=== PATIENT | female | born 1955 ===

== ENCOUNTER → 2018-05-19 | Outpatient (CLI) | payer OTHER ==
[~2018-05-19] MED LIST: AA8/1CAP3 PO; ALLO300T PO; ATOR40TA78 PO; BUTA1CAP30 PO; CHOL200074 PO; CITA40TA5 PO; FENO145T30 PO; GABA-826 PO; GABA300C10 PO; OMEP-110; OMNIPAQUE 350 MG/ML, 100ML BOTTLE ONE; RIVA20TA PO; ROSU10TA; TRIC15SO; coumadin
== END | disposition home or self-care (01) ==
LOC: CFH 09:18
PROVIDERS: ATTEND Nurse Practitioner Family
DX: Z12.31 Encounter for screening mammogram for malignant neoplasm of breast (principal); Z13.820 Encounter for screening for osteoporosis; K76.0 Fatty (change of) liver, not elsewhere classified; N95.8 Other specified menopausal and perimenopausal disorders; Z85.3 Personal history of malignant neoplasm of breast
CPT/HCPCS: 36415; 74177; 77067; 77080; 82565; Q9967

== ENCOUNTER 2018-10-04 00:52 | Observation (INO) | payer MEDICARE, OTHER ==
[~2018-10-04] VITALS: Ht 157.5 cm; Wt 95.5 kg
[~2018-10-04 00:52] MED LIST changes: -OMNIPAQUE 350 MG/ML, 100ML BOTTLE ONE
[2018-10-04 02:19] LABS: BASOPHILS # (AUTO) 0.06 x10^3/uL (0-0.1); BASOPHILS % (AUTO) 1 % (0-1); EOSINOPHILS # (AUTO) 0.21 x10^3/uL (0-0.4); EOSINOPHILS % (AUTO) 3 % (1-7); LYMPHOCYTES # (AUTO) 3.21 x10^3/uL (1-3.4); LYMPHOCYTES % (AUTO) 44 % (22-44); MD NO; MEAN CORPUSCULAR HEMOGLOBIN 30.9 pg (27.0-34.8); MEAN CORPUSCULAR HGB CONC 34.1 g/dL (32.4-35.8); MEAN CORPUSCULAR VOLUME 90.7 fL (80-100); MEAN PLATELET VOLUME 8.1 fL (7.4-10.4); MONOCYTES % (AUTO) 8 % (2-9); NEUTROPHILS # (AUTO) 3.15 x10^3/uL (1.8-6.8); NEUTROPHILS % (AUTO) 44 % (42-75); PLATELET COUNT 206 x10^3/uL (130-400); RED BLOOD COUNT 4.31 x10^6/uL (3.82-5.3); RED CELL DISTRIBUTION WIDTH 14.2 % (9.6-15.2)
[2018-10-04 02:30] LABS: INTERNATIONAL NORMALIZED RATIO 1.05 (0.93-1.1); PROTHROMBIN TIME 11.1 Seconds (9.6-11.5)
[2018-10-04 02:32] LABS: ALANINE AMINOTRANSFERASE 20 U/L (12-78); ALBUMIN 3.2 g/dL (3.4-5.0); ANION GAP 7 mmol/L (5-15); CALCIUM 8.6 mg/dL (8.5-10.1); CHLORIDE 108 mmol/L (98-107); CREATININE 1.14 mg/dL (0.55-1.02)
[2018-10-04 02:35] LABS: ALKALINE PHOSPHATASE 106 U/L (45-117); BILIRUBIN,TOTAL 0.4 mg/dL (0.2-1.0); TOTAL PROTEIN 6.7 g/dL (6.4-8.2)
--- NOTE | 2018-10-04 02:39 | NUR ---
PT TO ROOM PLACED IN A GOWN AND AWAITING TEST RESULTS WITH ERP RECHECK
[2018-10-04 03:55] VITALS: BP 113/77
[2018-10-04] MEDS ORDERED: POLYETHYLENE GLYCOL 17 GM PACKET PO PRN (05:00)
[2018-10-04] MEDS ORDERED: hydrALAzine 20 MG/ML, 1ML IVPush PRN (05:00)
[2018-10-04] MEDS ORDERED: ONDANSETRON 2MG/ML, 2ML IVPush PRN (05:00)
[2018-10-04] MEDS ORDERED: ACETAMINOPHEN 325 MG TABLET PO PRN (05:00)
[2018-10-04] MEDS: SODIUM CHLORIDE 0.9% 1,000 ML IV SCH ×2 (05:35→18:30)
[2018-10-04 08:00] VITALS: BP 121/80
[2018-10-04] MEDS: CHOLECALCIFEROL 1,000 UNIT TABLET PO SCH (09:00)
[2018-10-04] MEDS: ALLOPURINOL 300 MG TABLET PO SCH (09:00)
[2018-10-04 13:36] VITALS: BP 118/64
[2018-10-04] MEDS ORDERED: HEPARIN 5,000 UNITS/ML, 1ML IV PRN (16:30)
[2018-10-04] MEDS ORDERED: HEPARIN 5,000 UNITS/ML, 1ML IV ONE (16:30)
[2018-10-04 20:21] VITALS: BP 109/71
[2018-10-04] MEDS: GABAPENTIN 100 MG CAPSULE PO SCH (21:00)
[2018-10-04] MEDS: HEPARIN 25,000 UNITS/500ML PMX 500 ML IV PRN (21:11)
[2018-10-04] MEDS: ATORVASTATIN 40 MG TABLET PO SCH (21:11)
[2018-10-04] MEDS: CITALOPRAM 20 MG TABLET PO SCH (21:13)
[2018-10-04] MEDS ORDERED: PROTAMINE SULFATE 50 MG in SODIUM CHLORIDE 0.9% 50 ML IV ONE (22:30)
[2018-10-05 02:15] VITALS: BP 106/76
[2018-10-05 06:02] LABS: ANION GAP 8 mmol/L (5-15); CALCIUM 8.5 mg/dL (8.5-10.1); CHLORIDE 109 mmol/L (98-107)
[2018-10-05 06:03] LABS: CREATININE 1.04 mg/dL (0.55-1.02)
[2018-10-05 06:44] VITALS: BP 97/62
[2018-10-05] MEDS: ALLOPURINOL 300 MG TABLET PO SCH (09:00)
[2018-10-05] MEDS: CHOLECALCIFEROL 1,000 UNIT TABLET PO SCH (10:06)
[2018-10-05] MEDS: HEPARIN 25,000 UNITS/500ML PMX 500 ML IV PRN (11:04)
[2018-10-05 13:19] VITALS: BP 109/73
[2018-10-05] MEDS ORDERED: POTASSIUM CHLORIDE 20 MEQ TAB.ER.PRT PO ONE (16:00)
[2018-10-05] MEDS: SODIUM CHLORIDE 0.9% 1,000 ML IV SCH (16:07)
[2018-10-05] MEDS ORDERED: MOVIPREP POWDER 1 PREP KIT PO ONE (18:30)
[2018-10-05] MEDS: GABAPENTIN 100 MG CAPSULE PO SCH (19:35)
[2018-10-05 20:15] VITALS: BP 129/84
[2018-10-05] MEDS: ATORVASTATIN 40 MG TABLET PO SCH (21:24)
[2018-10-05] MEDS: CITALOPRAM 20 MG TABLET PO SCH (21:24)
[2018-10-06 01:53] VITALS: BP 100/65
[2018-10-06 03:45] LABS: ANION GAP 10 mmol/L (5-15); CALCIUM 8.7 mg/dL (8.5-10.1); CHLORIDE 114 mmol/L (98-107); CREATININE 1.02 mg/dL (0.55-1.02)
[2018-10-06 03:48] LABS: BASOPHILS # (AUTO) 0.04 x10^3/uL (0-0.1); BASOPHILS % (AUTO) 0 % (0-1); EOSINOPHILS # (AUTO) 0.18 x10^3/uL (0-0.4); EOSINOPHILS % (AUTO) 2 % (1-7); LYMPHOCYTES # (AUTO) 2.85 x10^3/uL (1-3.4); LYMPHOCYTES % (AUTO) 29 % (22-44); MD NO; MEAN CORPUSCULAR HEMOGLOBIN 30.9 pg (27.0-34.8); MEAN CORPUSCULAR HGB CONC 33.8 g/dL (32.4-35.8); MEAN CORPUSCULAR VOLUME 91.3 fL (80-100); MEAN PLATELET VOLUME 8.4 fL (7.4-10.4); MONOCYTES % (AUTO) 5 % (2-9); NEUTROPHILS # (AUTO) 6.18 x10^3/uL (1.8-6.8); NEUTROPHILS % (AUTO) 63 % (42-75); PLATELET COUNT 201 x10^3/uL (130-400); RED BLOOD COUNT 4.32 x10^6/uL (3.82-5.3); RED CELL DISTRIBUTION WIDTH 14.5 % (9.6-15.2)
[2018-10-06 07:40] VITALS: BP 104/56
[2018-10-06] MEDS ORDERED: PROMETHAZINE 25 MG/ML, 1ML IV PRN (08:30)
[2018-10-06] MEDS ORDERED: ONDANSETRON 2MG/ML, 2ML IV PRN (08:30)
[2018-10-06] MEDS ORDERED: ACETAMINOPHEN 325 MG TABLET PO PRN (08:30)
[2018-10-06] MEDS ORDERED: LABETALOL 5MG/ML, 20ML IV PRN (08:30)
[2018-10-06] MEDS ORDERED: FENTANYL PF 100 MCG/2ML IV PRN (08:30)
[2018-10-06] MEDS ORDERED: HYDROmorphone 2 MG/ML, 1ML IVPush PRN (08:30)
[2018-10-06] MEDS ORDERED: hydrALAzine 20 MG/ML, 1ML IV PRN (08:30)
[2018-10-06] MEDS ORDERED: OXYcodone 5 MG/5 ML ORAL.SOL UDC PO PRN (08:30)
[2018-10-06] MEDS ORDERED: MEPERIDINE/PF 25MG/0.5ML IVPush PRN (08:30)
[2018-10-06] MEDS: CHOLECALCIFEROL 1,000 UNIT TABLET PO SCH (08:56)
[2018-10-06] MEDS: ALLOPURINOL 300 MG TABLET PO SCH (08:56)
[2018-10-06] MEDS ORDERED: MIDAZOLAM 1 MG/ML, 2ML ONE (10:47)
[2018-10-06] MEDS ORDERED: FENTANYL PF 100 MCG/2ML ONE (10:48)
[2018-10-06] MEDS: SODIUM CHLORIDE 0.9% 1,000 ML IV SCH (12:00)
[2018-10-06 13:38] VITALS: BP 102/65
== END 2018-10-06 17:44 | disposition home or self-care (01) ==
LOC: ED 02:42 → EDIP 03:02 → INTOOBSV 03:02 → 3NE 03:40
PROVIDERS: ADMIT Hospitalist; ATTEND Hospitalist
DX: K64.0 First degree hemorrhoids (principal); K92.2 Gastrointestinal hemorrhage, unspecified; K64.8 Other hemorrhoids; G43.909 Migraine, unspecified, not intractable, without status migrainosus; M10.9 Gout, unspecified; D68.59 Other primary thrombophilia; I12.9 Hypertensive chronic kidney disease with stage 1 through stage 4 chronic kidney disease, or unspecified chronic kidney disease; Z79.01 Long term (current) use of anticoagulants; F17.210 Nicotine dependence, cigarettes, uncomplicated; E78.5 Hyperlipidemia, unspecified; E66.9 Obesity, unspecified; N18.9 Chronic kidney disease, unspecified; Z85.3 Personal history of malignant neoplasm of breast; Z86.61 Personal history of infections of the central nervous system; Z86.711 Personal history of pulmonary embolism; Z86.73 Personal history of transient ischemic attack (TIA), and cerebral infarction without residual deficits; Z90.5 Acquired absence of kidney; Z98.1 Arthrodesis status; Z90.49 Acquired absence of other specified parts of digestive tract; Z88.6 Allergy status to analgesic agent; Z91.048 Other nonmedicinal substance allergy status
CPT/HCPCS: 36415; 45378; 80048; 80053; 83735; 84100; 85014; 85018; 85025; 85520; 85610; 85730; 96365; 96366; 96376; 99285; G0378; J1644; J2250; J3010; J7030

== ENCOUNTER 2019-04-04 12:21 | Outpatient (CLI) | payer MEDICARE | END 2019-04-04 23:59 | disposition home or self-care (01) | LOC: CFH 12:21 | DX: R06.02 Shortness of breath (principal) | CPT/HCPCS: 71275; Q9967 ==

== ENCOUNTER 2019-04-19 15:37 | Outpatient (CLI) | payer MEDICARE ==
[~2019-04-19 15:37] MED LIST changes: -ROSU10TA; +ROSU10TA2
== END 2019-04-19 23:59 | disposition home or self-care (01) ==
LOC: CARD 15:37
DX: R06.02 Shortness of breath (principal); E78.5 Hyperlipidemia, unspecified; G43.009 Migraine without aura, not intractable, without status migrainosus; K21.9 Gastro-esophageal reflux disease without esophagitis; I26.99 Other pulmonary embolism without acute cor pulmonale
CPT/HCPCS: 94060; 94726; 94729